=== PATIENT | male | born 1985 | race Caucasian/White ===

== ENCOUNTER 2016-11-17 16:59 | Emergency (ER) | payer SELFPAY ==
[~2016-11-17] VITALS: Ht 182.9 cm; Wt 62.4 kg
[2016-11-17 17:03] VITALS: BP 147/91
[2016-11-17 17:41] LABS: HEMATOCRIT 42.2 % (38.0-50.0); MCH 29.5 PG (29.0-34.0); MCHC 33.9 G/DL (30.0-36.0); MCV 87.2 FL (86-99); MEAN PLAT.VOLUME 8.8 uM^3 (9.0-12.4); PLATELET COUNT 342 K/uL (156-360); RBC DIS.WIDTH-CV 13.1 % (11.8-14.6); RBC DIS.WIDTH-SD 41.6 % (39-53); RED BLOOD COUNT 4.84 M/uL (4.00-5.50); WHITE BLOOD COUNT 10.5 K/uL (4.1-10.2)
[2016-11-17 17:55] LABS: CHLORIDE 107 mEq/L (99-109); POTASSIUM 4.2 mEq/L (3.7-5.4); SODIUM 142 mEq/L (136-147)
[2016-11-17 17:56] LABS: GLUCOSE 149 mg/dL (70-99)
[2016-11-17 17:58] LABS: ANION GAP 12 MEQ/L (2-14)
[2016-11-17 18:00] LABS: GFR ESTIMATE (CALCULATED) > 59 mL/min/
[2016-11-17 18:01] LABS: UREA NITROGEN (BUN) 19 mg/dL (9-23)
== END 2016-11-17 18:15 | disposition left against medical advice (07) ==
LOC: EME 16:59
PROVIDERS: Emergency Medicine
DX: T40.1X1A Poisoning by heroin, accidental (unintentional), initial encounter (principal); R00.0 Tachycardia, unspecified; F17.200 Nicotine dependence, unspecified, uncomplicated
CPT/HCPCS: 80048; 85027; 93005; 99281; 99284; J2310; J7030